=== PATIENT | female | born 1960 | race Caucasian/White ===

== ENCOUNTER 2020-09-18 03:29 | Emergency (ER) | payer BC, OTHER ==
[~2020-09-18] VITALS: Ht 167.6 cm; Wt 73.0 kg
[2020-09-18] MEDS ORDERED: KETOROLAC TROMETHAMINE 30 MG/ML VIAL IV STA (04:37)
[2020-09-18] MEDS ORDERED: ONDANSETRON HCL INJ 2MG/ML 2ML 2 MG/ML VIAL IV STA ×2 (04:37→05:29)
[2020-09-18] MEDS ORDERED: DIATRIZOATE MEGL/DIATRIZOA SOD 30 ML BTL PO ONE ×2 (04:38→07:02)
[2020-09-18 04:55] LABS: BASOPHILS % 0.4 % (0.0-1.0); EOSINOPHILS # (AUTO) 0.1 (0.0-0.4); EOSINOPHILS % 1.3 % (0.0-6.0); HEMATOCRIT 39.9 % (34.2-44.1); HEMOGLOBIN 12.9 g/dL (12.0-16.0); LYMPHOCYTES # (AUTO) 1.4 (1.0-3.2); LYMPHOCYTES % 14.9 % (18.0-39.1); MEAN CORPUSCULAR HEMOGLOBIN 31.9 pg (28-32); MEAN CORPUSCULAR HGB CONC 32.3 g/dL (31-35); MEAN CORPUSCULAR VOLUME 98.8 fL (81-99); MONOCYTES # (AUTO) 0.9 (0.2-0.8); MONOCYTES % 9.2 % (4.4-11.3); NEUTROPHILS # (AUTO) 6.8 (2.1-6.9); NEUTROPHILS % 73.9 % (38.7-80.0); PLATELET COUNT 207 x10e3/uL (140-360); RED BLOOD COUNT 4.04 x10e6/uL (3.6-5.1); RED CELL DISTRIBUTION WIDTH 12.1 % (11.7-14.4)
[2020-09-18 05:09] LABS: AMYLASE 55 U/L (25-125); LIPASE 20 U/L (8-78)
[2020-09-18 05:11] LABS: ALBUMIN 4.5 g/dL (3.5-5.0); ALBUMIN/GLOBULIN RATIO 1.3 (0.8-2.0); ANION GAP 18.4 mmol/L (8-16); CALCIUM 9.5 mg/dL (8.4-10.2); CREATININE, SERUM 1.01 mg/dL (0.57-1.11); POTASSIUM 3.4 mmol/L (3.5-5.1)
[2020-09-18] MEDS ORDERED: DICYCLOMINE HCL 20 MG/2 ML VIAL IM ONE ×2 (05:30→05:40)
[2020-09-18] MEDS ORDERED: MORPHINE SULFATE INJ 4 MG/ML INJ 1ML IV STA (05:31)
[2020-09-18] MEDS ORDERED: MORPHINE SULFATE INJ 2 MG/ML SYR ONE (05:40)
[2020-09-18 07:06] LABS: CLARITY,URINE CLEAR (CLEAR); COLOR,URINE YELLOW (YELLOW); KETONES,URINE NEGATIVE (NEGATIVE); LEUKOCYTE ESTERASE ,URINE NEGATIVE (NEGATIVE); NITRITE,URINE NEGATIVE (NEGATIVE); PROTEIN,URINE DIPSTICK NEGATIVE (NEGATIVE)
[2020-09-18 07:07] LABS: AMPHETAMINES SCREEN,URINE NEGATIVE (NEGATIVE); BENZODIAZEPINES SCREEN,URINE NEGATIVE (NEGATIVE); PHENCYCLIDINE SCREEN,URINE NEGATIVE (NEGATIVE); URINE UROBILINOGEN 0.2 mg/dL (0.2 - 1)
[2020-09-18] MEDS ORDERED: METOCLOPRAMIDE HCL 10 MG/2ML VIAL IV ONE (07:15)
[2020-09-18] MEDS ORDERED: DIPHENHYDRAMINE HCL INJ 50 MG/ML VIAL IV ONE (07:15)
[2020-09-18 07:20] LABS: RBC,URINE 21-50 /HPF (0-5); WBC,URINE (MAN) 0-5 /HPF (0-5)
[2020-09-18 07:21] LABS: BACTERIA,URINE RARE /HPF; EPITHELIAL CELLS,URINE RARE /LPF; TRANSITIONAL EPI CELLS,URINE FEW
[2020-09-18] MEDS ORDERED: SODIUM CHLORIDE 0.9% 50ML 50 ML ONE (07:52)
[2020-09-18 09:26] VITALS: BP 128/66
== END 2020-09-18 09:28 | disposition home or self-care (01) ==
LOC: ER 04:13
DX: K59.00 Constipation, unspecified (principal); R10.30 Lower abdominal pain, unspecified; I10 Essential (primary) hypertension; J44.9 Chronic obstructive pulmonary disease, unspecified; F41.9 Anxiety disorder, unspecified; K21.9 Gastro-esophageal reflux disease without esophagitis; Z87.891 Personal history of nicotine dependence
CPT/HCPCS: 36415; 74018; 74177; 80053; 80307; 81001; 82150; 83690; 85025; 99284; J0500; J1200; J1885; J2270; J2405; J2765

== ENCOUNTER 2020-12-23 19:39 | Inpatient (IN) | payer BC ==
[~2020-12-23] VITALS: Ht 167.6 cm; Wt 73.0 kg
[2020-12-23] MEDS ORDERED: ONDANSETRON HCL INJ 2MG/ML 2ML 2 MG/ML VIAL IV STA (20:46)
[2020-12-23] MEDS ORDERED: SODIUM CHLORIDE 0.9% 1000ML 1,000 ML ONE (20:53)
[2020-12-23 20:57] LABS: BASOPHILS % 0.4 % (0.0-1.0); EOSINOPHILS # (AUTO) 0.1 (0.0-0.4); EOSINOPHILS % 0.9 % (0.0-6.0); HEMATOCRIT 38.8 % (34.2-44.1); HEMOGLOBIN 12.2 g/dL (12.0-16.0); LYMPHOCYTES # (AUTO) 0.5 (1.0-3.2); LYMPHOCYTES % 5.6 % (18.0-39.1); MEAN CORPUSCULAR HEMOGLOBIN 31.1 pg (28-32); MEAN CORPUSCULAR HGB CONC 31.4 g/dL (31-35); MONOCYTES # (AUTO) 0.7 (0.2-0.8); MONOCYTES % 7.6 % (4.4-11.3); NEUTROPHILS # (AUTO) 8.1 (2.1-6.9); NEUTROPHILS % 85.1 % (38.7-80.0); PLATELET COUNT 211 x10e3/uL (140-360); RED BLOOD COUNT 3.92 x10e6/uL (3.6-5.1); RED CELL DISTRIBUTION WIDTH 13.2 % (11.7-14.4)
[2020-12-23] MEDS ORDERED: DICYCLOMINE HCL 20 MG/2 ML VIAL IM ONE ×2 (20:58→21:00)
[2020-12-23] MEDS ORDERED: SODIUM CHLORIDE 0.9% 1000ML 1,000 ML IV ONE (21:00)
[2020-12-23 21:17] LABS: ALBUMIN/GLOBULIN RATIO 1.2 (0.8-2.0); AMYLASE 85 U/L (25-125); ANION GAP 14.4 mmol/L (8-16); CALCIUM 9.7 mg/dL (8.4-10.2); CREATININE, SERUM 0.99 mg/dL (0.57-1.11); LIPASE 21 U/L (8-78); POTASSIUM 3.4 mmol/L (3.5-5.1)
[2020-12-23 21:23] LABS: CREATINE KINASE MB 2.3 ng/mL (0-5.0)
[2020-12-23 21:33] LABS: EOSINOPHILS % (MANUAL) 2 % (0-7); LYMPHOCYTES % (MANUAL) 8 % (19-48); MONOCYTES % (MANUAL) 3 % (3.4-9.0); NEUTROPHILS % (MANUAL) 87 % (40-74)
[2020-12-23 21:34] LABS: HYPOCHROMASIA SLIGHT; PLATELET ESTIMATE ADEQUATE; PLATELET MORPHOLOGY COMMENT NORMAL; RBC MORPHOLOGY COMMENT NORMAL
[2020-12-23] MEDS ORDERED: SODIUM CHLORIDE 0.9% 50ML 50 ML ONE (22:00)
[2020-12-23] MEDS ORDERED: IOPAMIDOL 370 MG/ML 200 ML INFUS..BTL INJ ONE (22:00)
[2020-12-23 22:10] LABS: CLARITY,URINE CLEAR (CLEAR); COLOR,URINE AMBER (YELLOW)
[2020-12-23 22:11] LABS: KETONES,URINE TRACE (NEGATIVE); LEUKOCYTE ESTERASE ,URINE NEGATIVE (NEGATIVE); NITRITE,URINE NEGATIVE (NEGATIVE); PROTEIN,URINE DIPSTICK 1+ (NEGATIVE); URINE UROBILINOGEN 0.2 mg/dL (0.2 - 1)
[2020-12-23 22:14] LABS: HYALINE CASTS 0-1 (0-1); MUCUS,URINE MODERATE (RARE)
[2020-12-23 22:15] LABS: BACTERIA,URINE FEW /HPF; EPITHELIAL CELLS,URINE FEW /LPF; RBC,URINE 0-5 /HPF (0-5)
[2020-12-24] VITALS (8 sets, daily range): BP systolic 88–129; BP diastolic 45–72
[2020-12-24] MEDS ORDERED: MORPHINE SULFATE INJ 2 MG/ML SYR IV STA (00:03)
[2020-12-24] MEDS ORDERED: METRONIDAZOLE 500MG/NS 100ML IV SCH (01:00)
[2020-12-24] MEDS ORDERED: PIPERACILLIN/TAZOBACTAM 3.375 GM in SODIUM CHLORIDE 0.9% 50ML 50 ML IV ONE (01:00)
[2020-12-24] MEDS: SODIUM CHLORIDE 0.9% 1000ML 1,000 ML IV SCH ×3 (02:25→17:08)
[2020-12-24] MEDS: MORPHINE SULFATE INJ 4 MG/ML INJ 1ML IV PRN ×4 (05:22→21:08)
[2020-12-24] MEDS: METRONIDAZOLE 500MG/NS 100ML IV SCH ×4 (10:10→23:18)
[2020-12-24] MEDS ORDERED: ALBUTEROL SULFATE HFA 8GM INHALATION AEROSOL INH PRN (13:30)
[2020-12-24] MEDS: ONDANSETRON HCL INJ 2MG/ML 2ML 2 MG/ML VIAL IV PRN ×2 (17:13→21:08)
[2020-12-24] MEDS: HYDROCODONE/APAP 5MG-325MG TAB PO PRN (23:18)
[2020-12-25] VITALS (8 sets, daily range): BP systolic 120–148; BP diastolic 64–76
[2020-12-25] MEDS: ONDANSETRON HCL INJ 2MG/ML 2ML 2 MG/ML VIAL IV PRN ×2 (02:07→14:18)
[2020-12-25] MEDS: HYDROCODONE/APAP 5MG-325MG TAB PO PRN ×2 (02:07→20:55)
[2020-12-25 05:02] LABS: BASOPHILS % 0.4 % (0.0-1.0); EOSINOPHILS # (AUTO) 0.2 (0.0-0.4); EOSINOPHILS % 3.3 % (0.0-6.0); HEMOGLOBIN 9.8 g/dL (12.0-16.0); LYMPHOCYTES # (AUTO) 0.6 (1.0-3.2); LYMPHOCYTES % 11.6 % (18.0-39.1); MEAN CORPUSCULAR HEMOGLOBIN 31.3 pg (28-32); MEAN CORPUSCULAR HGB CONC 31.6 g/dL (31-35); MONOCYTES # (AUTO) 0.4 (0.2-0.8); MONOCYTES % 7.9 % (4.4-11.3); NEUTROPHILS # (AUTO) 3.7 (2.1-6.9); NEUTROPHILS % 76.2 % (38.7-80.0); PLATELET COUNT 158 x10e3/uL (140-360); RED BLOOD COUNT 3.13 x10e6/uL (3.6-5.1); RED CELL DISTRIBUTION WIDTH 13.2 % (11.7-14.4)
[2020-12-25] MEDS: METRONIDAZOLE 500MG/NS 100ML IV SCH ×3 (05:16→17:17)
[2020-12-25] MEDS: SODIUM CHLORIDE 0.9% 1000ML 1,000 ML IV SCH ×3 (05:17→17:01)
[2020-12-25] MEDS: MORPHINE SULFATE INJ 4 MG/ML INJ 1ML IV PRN (05:20)
[2020-12-25 05:32] LABS: ALBUMIN 3.4 g/dL (3.5-5.0); ALBUMIN/GLOBULIN RATIO 1.2 (0.8-2.0); ANION GAP 10.6 mmol/L (8-16); CALCIUM 8.4 mg/dL (8.4-10.2); CREATININE, SERUM 0.76 mg/dL (0.57-1.11); POTASSIUM 3.6 mmol/L (3.5-5.1)
[2020-12-25] MEDS: FLUOXETINE HCL 20 MG CAP PO SCH (09:42)
[2020-12-25] MEDS ORDERED: MEPERIDINE HCL INJ 25 MG/ML VIAL ONE (14:21)
[2020-12-25] MEDS: MEPERIDINE HCL/PF 25 MG/0.5 ML AMP IV PRN (14:25)
[2020-12-25] MEDS: LACTOBACILLUS ACIDOPHILUS CAPSULE PO SCH (17:17)
[2020-12-25] MEDS: FAMOTIDINE 20 MG/2 ML VIAL IV SCH (17:17)
[2020-12-26] VITALS (8 sets, daily range): BP systolic 137–152; BP diastolic 75–89
[2020-12-26] MEDS: METRONIDAZOLE 500MG/NS 100ML IV SCH ×5 (00:50→23:57)
[2020-12-26] MEDS: SODIUM CHLORIDE 0.9% 1000ML 1,000 ML IV SCH ×4 (00:50→21:25)
[2020-12-26] MEDS: MEPERIDINE HCL/PF 25 MG/0.5 ML AMP IV PRN ×2 (02:25→21:18)
[2020-12-26] MEDS: ONDANSETRON HCL INJ 2MG/ML 2ML 2 MG/ML VIAL IV PRN ×4 (02:28→21:18)
[2020-12-26] MEDS ORDERED: MEPERIDINE HCL INJ 25 MG/ML VIAL ONE ×3 (02:33→21:27)
[2020-12-26] MEDS: HYDROCODONE/APAP 5MG-325MG TAB PO PRN ×2 (04:51→11:40)
[2020-12-26] MEDS ORDERED: MEPERIDINE HCL/PF 25 MG/0.5 ML AMP IV ONE (05:15)
[2020-12-26] MEDS: FAMOTIDINE 20 MG/2 ML VIAL IV SCH ×2 (08:42→17:30)
[2020-12-26] MEDS: LACTOBACILLUS ACIDOPHILUS CAPSULE PO SCH ×2 (08:44→17:34)
[2020-12-26] MEDS: FLUOXETINE HCL 20 MG CAP PO SCH (08:44)
[2020-12-26 13:45] LABS: BASOPHILS % 0.8 % (0.0-1.0); EOSINOPHILS # (AUTO) 0.2 (0.0-0.4); EOSINOPHILS % 3.5 % (0.0-6.0); HEMATOCRIT 32.4 % (34.2-44.1); LYMPHOCYTES # (AUTO) 1.1 (1.0-3.2); LYMPHOCYTES % 21.5 % (18.0-39.1); MEAN CORPUSCULAR HEMOGLOBIN 30.9 pg (28-32); MEAN CORPUSCULAR HGB CONC 30.9 g/dL (31-35); MONOCYTES # (AUTO) 0.6 (0.2-0.8); MONOCYTES % 11.8 % (4.4-11.3); NEUTROPHILS # (AUTO) 3.1 (2.1-6.9); PLATELET COUNT 177 x10e3/uL (140-360); RED BLOOD COUNT 3.24 x10e6/uL (3.6-5.1); RED CELL DISTRIBUTION WIDTH 13.2 % (11.7-14.4)
[2020-12-26] MEDS: ACETAMINOPHEN 325 MG TAB PO PRN (16:02)
[2020-12-26] MEDS: LISINOPRIL 2.5 MG TAB PO SCH (17:34)
[2020-12-27] VITALS (8 sets, daily range): BP systolic 118–169; BP diastolic 70–89
[2020-12-27] MEDS: HYDROCODONE/APAP 5MG-325MG TAB PO PRN ×2 (02:22→11:26)
[2020-12-27] MEDS: MEPERIDINE HCL/PF 25 MG/0.5 ML AMP IV PRN (04:33)
[2020-12-27] MEDS: ONDANSETRON HCL INJ 2MG/ML 2ML 2 MG/ML VIAL IV PRN ×3 (04:33→17:42)
[2020-12-27] MEDS ORDERED: MEPERIDINE HCL INJ 25 MG/ML VIAL ONE ×2 (04:42→23:54)
[2020-12-27] MEDS: METRONIDAZOLE 500MG/NS 100ML IV SCH ×3 (05:20→19:20)
[2020-12-27] MEDS: SODIUM CHLORIDE 0.9% 1000ML 1,000 ML IV SCH ×2 (05:20→17:46)
[2020-12-27 06:24] LABS: BASOPHILS % 0.8 % (0.0-1.0); EOSINOPHILS # (AUTO) 0.2 (0.0-0.4); EOSINOPHILS % 4.5 % (0.0-6.0); HEMATOCRIT 28.9 % (34.2-44.1); HEMOGLOBIN 9.2 g/dL (12.0-16.0); LYMPHOCYTES # (AUTO) 1.1 (1.0-3.2); LYMPHOCYTES % 30.1 % (18.0-39.1); MEAN CORPUSCULAR HEMOGLOBIN 31.2 pg (28-32); MEAN CORPUSCULAR HGB CONC 31.8 g/dL (31-35); MONOCYTES # (AUTO) 0.4 (0.2-0.8); MONOCYTES % 11.2 % (4.4-11.3); NEUTROPHILS % 53.1 % (38.7-80.0); PLATELET COUNT 168 x10e3/uL (140-360); RED BLOOD COUNT 2.95 x10e6/uL (3.6-5.1); RED CELL DISTRIBUTION WIDTH 13.2 % (11.7-14.4)
[2020-12-27] MEDS: FAMOTIDINE 20 MG/2 ML VIAL IV SCH ×2 (09:13→17:45)
[2020-12-27] MEDS: LACTOBACILLUS ACIDOPHILUS CAPSULE PO SCH ×2 (09:14→17:45)
[2020-12-27] MEDS: FLUOXETINE HCL 20 MG CAP PO SCH (09:15)
[2020-12-27] MEDS: LISINOPRIL 2.5 MG TAB PO SCH ×2 (09:16→18:44)
[2020-12-27] MEDS ORDERED: SODIUM CHLORIDE 0.9% 50ML 0 ML ONE (12:00)
[2020-12-27] MEDS ORDERED: IOPAMIDOL 370 MG/ML 200 ML INFUS..BTL INJ ONE (12:01)
[2020-12-27] MEDS ORDERED: VALPROATE SOD INJ 500 MG in SODIUM CHLORIDE 0.9% 100 ML 100 ML INJ ONE (12:15)
[2020-12-27] MEDS ORDERED: SODIUM CHLORIDE 0.9% 100 ML ONE (15:07)
[2020-12-27] MEDS: TOPIRAMATE 25 MG TAB PO SCH ×3 (17:45→22:11)
[2020-12-27] MEDS: DICYCLOMINE HCL 10 MG CAP PO SCH (20:42)
[2020-12-28] VITALS: BP 134/74
[2020-12-28] MEDS: ONDANSETRON HCL INJ 2MG/ML 2ML 2 MG/ML VIAL IV PRN ×3 (00:20→12:50)
[2020-12-28] MEDS: METRONIDAZOLE 500MG/NS 100ML IV SCH ×3 (00:20→12:50)
[2020-12-28] MEDS: ACETAMINOPHEN 325 MG TAB PO PRN ×2 (03:54→12:51)
[2020-12-28 04:00] VITALS: BP 131/73
[2020-12-28] MEDS: SODIUM CHLORIDE 0.9% 1000ML 1,000 ML IV SCH ×2 (05:28→09:03)
[2020-12-28 08:00] VITALS: BP 140/76
[2020-12-28 09:00] VITALS: BP 140/76
[2020-12-28] MEDS: FLUOXETINE HCL 20 MG CAP PO SCH (09:02)
[2020-12-28] MEDS: LACTOBACILLUS ACIDOPHILUS CAPSULE PO SCH (09:02)
[2020-12-28] MEDS: DICYCLOMINE HCL 10 MG CAP PO SCH (09:02)
[2020-12-28] MEDS: LISINOPRIL 2.5 MG TAB PO SCH (09:02)
[2020-12-28] MEDS: FAMOTIDINE 20 MG/2 ML VIAL IV SCH (09:02)
[2020-12-28 11:45] VITALS: BP 138/75
[2020-12-28] MEDS ORDERED: ALBUTEROL SULFATE HFA 8GM INHALATION AEROSOL INH PRN (13:00)
[2020-12-28] MEDS ORDERED: FLAGYL500 MG PO (13:56)
[2020-12-28] MEDS ORDERED: DICYCLOMINE HCL10 MG PO (13:56)
[2020-12-28] MEDS ORDERED: Lactobacillus Acidophilus PO (13:56)
[2020-12-28] MEDS ORDERED: ZOFRAN4 MG PO (13:56)
[2020-12-28] MEDS ORDERED: ACETAMINOPHEN325 M1 PO (13:56)
[2020-12-28] MEDS ORDERED: LISINOPRIL2.5 MG PO (13:56)
[2020-12-28] MEDS ORDERED: TOPAMAX25 MG PO (13:56)
[2020-12-28 16:00] VITALS: BP 145/74
== END 2020-12-28 18:05 | disposition home or self-care (01) | DRG 392 ==
LOC: ER 20:48 → ERHOLD 12-24 02:14 → MED/SURG2 12-24 02:47
PROVIDERS: ADMIT Internal Medicine; ATTEND Internal Medicine
DX: A09 Infectious gastroenteritis and colitis, unspecified (principal); K35.80 Unspecified acute appendicitis; K58.1 Irritable bowel syndrome with constipation; I10 Essential (primary) hypertension; F41.9 Anxiety disorder, unspecified; R51.9 Headache, unspecified; Z20.822 Contact with and (suspected) exposure to COVID-19; E78.5 Hyperlipidemia, unspecified; J43.9 Emphysema, unspecified; E53.8 Deficiency of other specified B group vitamins; I65.22 Occlusion and stenosis of left carotid artery
CPT/HCPCS: 36415; 70496; 70498; 74018; 74177; 80053; 81001; 82150; 82550; 82553; 83690; 84484; 85025; 93005; 99284; J0500; J2175; J2270; J2405; J2543; J7030; J7050; Q9967; U0002

== ENCOUNTER 2021-02-05 12:38 | Emergency (ER) | payer BC ==
[~2021-02-05] VITALS: Ht 167.6 cm; Wt 73.0 kg
[~2021-02-05 12:38] MED LIST: ACETAMINOPHEN325 M1 PO; DICYCLOMINE HCL10 MG PO; FLAGYL500 MG PO; LISINOPRIL2.5 MG PO; Lactobacillus Acidophilus PO; TOPAMAX25 MG PO; ZOFRAN4 MG PO
[2021-02-05 13:52] LABS: BASOPHILS % 0.3 % (0.0-1.0); EOSINOPHILS # (AUTO) 0.2 (0.0-0.4); EOSINOPHILS % 1.6 % (0.0-6.0); HEMATOCRIT 41.2 % (34.2-44.1); HEMOGLOBIN 13.2 g/dL (12.0-16.0); LYMPHOCYTES % 17.1 % (18.0-39.1); MEAN CORPUSCULAR HEMOGLOBIN 31.3 pg (28-32); MEAN CORPUSCULAR VOLUME 97.6 fL (81-99); MONOCYTES % 8.3 % (4.4-11.3); NEUTROPHILS # (AUTO) 8.4 (2.1-6.9); NEUTROPHILS % 72.2 % (38.7-80.0); PLATELET COUNT 265 x10e3/uL (140-360); RED BLOOD COUNT 4.22 x10e6/uL (3.6-5.1); RED CELL DISTRIBUTION WIDTH 13.6 % (11.7-14.4)
[2021-02-05 14:16] LABS: ALBUMIN 4.1 g/dL (3.5-5.0); ALBUMIN/GLOBULIN RATIO 1.3 (0.8-2.0); ANION GAP 15.3 mmol/L (8-16); CALCIUM 9.3 mg/dL (8.4-10.2); CREATININE, SERUM 1.04 mg/dL (0.57-1.11); POTASSIUM 3.3 mmol/L (3.5-5.1)
[2021-02-05 14:29] LABS: CLARITY,URINE SL CLOUDY (CLEAR); COLOR,URINE YELLOW (YELLOW); KETONES,URINE NEGATIVE (NEGATIVE); LEUKOCYTE ESTERASE ,URINE NEGATIVE (NEGATIVE); NITRITE,URINE NEGATIVE (NEGATIVE); PROTEIN,URINE DIPSTICK NEGATIVE (NEGATIVE); URINE UROBILINOGEN 0.2 mg/dL (0.2 - 1)
[2021-02-05 14:43] LABS: EPITHELIAL CELLS,URINE RARE /LPF; RBC,URINE 0-5 /HPF (0-5)
[2021-02-05] MEDS ORDERED: ONDANSETRON ODT4 MG PO (15:11)
== END 2021-02-05 15:18 | disposition home or self-care (01) ==
LOC: ER 14:02
DX: R10.10 Upper abdominal pain, unspecified (principal); Z87.19 Personal history of other diseases of the digestive system
CPT/HCPCS: 36415; 80053; 81001; 83690; 85025; 99283